=== PATIENT | male | born 2000 | race Hispanic/Latino ===

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

== ENCOUNTER 2020-10-30 07:03 | Emergency (ER) | payer MEDICAID ==
[~2020-10-30] VITALS: Ht 188 cm; Wt 115.9 kg
[~2020-10-30 07:03] MED LIST changes: +MOTRIN800 MG PO
[2020-10-30 08:19] VITALS: BP 126/75
== END 2020-10-30 08:33 | disposition home or self-care (01) ==
LOC: ED 07:03
DX: M25.572 Pain in left ankle and joints of left foot (principal); X50.0XXA Overexertion from strenuous movement or load, initial encounter; Y93.89 Activity, other specified; Y92.003 Bedroom of unspecified non-institutional (private) residence as the place of occurrence of the external cause

== ENCOUNTER 2021-04-28 05:52 | Emergency (ER) | payer MEDICAID ==
[~2021-04-28] VITALS: Ht 188 cm; Wt 118.0 kg
[2021-04-28] MEDS ORDERED: ZPAK PO (08:06)
[2021-04-28 08:20] VITALS: BP 122/75
== END 2021-04-28 08:20 | disposition home or self-care (01) ==
LOC: ED 05:52
DX: J06.9 Acute upper respiratory infection, unspecified (principal); J45.909 Unspecified asthma, uncomplicated; Z20.822 Contact with and (suspected) exposure to COVID-19

== ENCOUNTER 2021-06-30 14:18 | Emergency (ER) | payer MEDICAID ==
[~2021-06-30] VITALS: Ht 188 cm; Wt 115.9 kg
[~2021-06-30 14:18] MED LIST changes: +ZPAK PO
[2021-06-30 16:14] VITALS: BP 121/64
== END 2021-06-30 16:14 | disposition home or self-care (01) ==
LOC: ED 14:18
DX: R51.9 Headache, unspecified (principal); J45.909 Unspecified asthma, uncomplicated; F17.210 Nicotine dependence, cigarettes, uncomplicated; Z20.822 Contact with and (suspected) exposure to COVID-19

== ENCOUNTER 2021-10-13 05:29 | Emergency (ER) | payer MEDICAID ==
[~2021-10-13] VITALS: Ht 190.5 cm; Wt 113.0 kg
[2021-10-13] MEDS ORDERED: AMOXICILLIN500 MG PO (06:00)
[2021-10-13] MEDS ORDERED: ULTRAM50 M1 PO (06:00)
[2021-10-13 06:07] VITALS: BP 114/62
== END 2021-10-13 06:12 | disposition home or self-care (01) ==
LOC: ED 05:29
DX: S02.5XXA Fracture of tooth (traumatic), initial encounter for closed fracture (principal); J45.909 Unspecified asthma, uncomplicated; F17.200 Nicotine dependence, unspecified, uncomplicated; X58.XXXA Exposure to other specified factors, initial encounter

== ENCOUNTER 2021-11-11 05:56 | Emergency (ER) | payer MEDICAID ==
[~2021-11-11] VITALS: Ht 190.5 cm; Wt 114.0 kg
[~2021-11-11 05:56] MED LIST changes: +AMOXICILLIN500 MG PO; +ULTRAM50 M1 PO
[2021-11-11] MEDS ORDERED: MOTRIN800 MG PO (06:23)
[2021-11-11 06:40] VITALS: BP 123/84
== END 2021-11-11 06:40 | disposition home or self-care (01) ==
LOC: ED 05:56
DX: S83.91XA Sprain of unspecified site of right knee, initial encounter (principal); J45.909 Unspecified asthma, uncomplicated; F17.200 Nicotine dependence, unspecified, uncomplicated; X58.XXXA Exposure to other specified factors, initial encounter

== ENCOUNTER 2022-03-27 08:29 | Emergency (ER) | payer MEDICAID ==
[~2022-03-27] VITALS: Ht 190.5 cm; Wt 111.3 kg
[2022-03-27 08:35] VITALS: BP 143/98
[2022-03-27 08:37] VITALS: BP 129/88
[2022-03-27 09:01] VITALS: BP 132/84
[2022-03-27 09:11] LABS: HEMATOCRIT 42.2 % (39.0-50.0); HEMOGLOBIN 14.5 g/dl (14.0-18.0); IMMATURE GRANULOCYTES 0.1 % (0.0-5.0); MEAN CELL VOLUME 93.6 fL CALC (80.0-100.0); MEAN CORPUSCULAR HGB 32.2 pG CALC (26.0-32.0); MEAN CORPUSCULAR HGB CONC 34.4 g/dL CAL (32.0-36.0); NEUT# 3.55 thou/uL (1.82-7.42); RED BLOOD COUNT 4.51 mill/uL (4.70-6.10); RED CELL DISTRI WIDTH 11.9 % (11.5-15.5)
[2022-03-27 09:31] VITALS: BP 120/72
[2022-03-27 09:39] LABS: ANION GAP 10 (6-22 (CALC)); BILIRUBIN, TOTAL 0.3 mg/dL (0.0-1.4); BUN 10 mg/dL (9-20); BUN/CREATININE RATIO 13 (12-20 (CALC)); CARBON DIOXIDE 25 mmol/l (22-30); CHLORIDE 108 mmol/l (95-108); CREATININE 0.8 mg/dL (0.7-1.3); GFR FOR AFR.AMER. > 60 ML/MIN (>=60 (CALC)); GFR OTHER RACES > 60 ML/MIN (>=60 (CALC)); SGOT/AST 22 u/l (17-59); SODIUM 139 mmol/l (137-146); TOTAL PROTEIN 6.8 g/dL (6.3-8.2)
[2022-03-27 09:43] LABS: ALKALINE PHOSPHATASE 43 u/l (38-126)
[2022-03-27 10:01] VITALS: BP 114/67
[2022-03-27 10:45] VITALS: BP 114/67
== END 2022-03-27 10:46 | disposition home or self-care (01) ==
LOC: ED 08:29
PROVIDERS: Family Medicine
DX: R51.9 Headache, unspecified (principal); J45.909 Unspecified asthma, uncomplicated; F17.210 Nicotine dependence, cigarettes, uncomplicated; Z20.822 Contact with and (suspected) exposure to COVID-19

== ENCOUNTER 2022-06-01 12:32 | Emergency (ER) | payer MEDICAID ==
[~2022-06-01] VITALS: Ht 190.5 cm; Wt 113.0 kg
[2022-06-01 12:40] VITALS: BP 134/88
== END 2022-06-01 13:10 | disposition left against medical advice (07) | DRG 951 ==
LOC: ED 12:32 → LWOBS 13:10
DX: Z53.21 Procedure and treatment not carried out due to patient leaving prior to being seen by health care provider (principal)

== ENCOUNTER 2023-01-13 09:20 | Emergency (ER) | payer MEDICAID ==
[~2023-01-13] VITALS: Ht 190.5 cm; Wt 111.1 kg
[2023-01-13 09:38] VITALS: BP 135/85
[2023-01-13 10:00] VITALS: BP 116/74
[2023-01-13 10:31] VITALS: BP 134/91
[2023-01-13 11:00] VITALS: BP 127/87
[2023-01-13 11:27] VITALS: BP 127/87
== END 2023-01-13 11:30 | disposition home or self-care (01) ==
LOC: ED 09:20
DX: M79.641 Pain in right hand (principal); J45.909 Unspecified asthma, uncomplicated; F17.200 Nicotine dependence, unspecified, uncomplicated

== ENCOUNTER 2024-10-02 13:07 | Emergency (ER) | payer SELFPAY ==
[~2024-10-02] VITALS: Ht 190.5 cm; Wt 110.6 kg
[2024-10-02] MEDS ORDERED: MECLIZINE 2525 MG PO (15:03)
[2024-10-02 15:20] VITALS: BP 146/90
== END 2024-10-02 15:21 | disposition home or self-care (01) | DRG 149 ==
LOC: ED 13:07
DX: R42 Dizziness and giddiness (principal)